=== PATIENT | male | born 1995 | race American Indian/Alaskan Native ===

== ENCOUNTER 2021-08-23 22:26 | Emergency (ER) | payer SELFPAY ==
[2021-08-23 22:45] VITALS: BP 117/81
[2021-08-23] MEDS ORDERED: IBUPROFEN 800 MG TAB PO ONE (22:56)
[2021-08-23] MEDS ORDERED: oxyCODONE /ACETAMINOPHEN 5-325MG TAB PO ONE (22:56)
--- NOTE | 2021-08-23 22:56 | Emergency Department Report ---
ED ENT HPI - General Chief complaint: Dental/Oral Stated complaint: TOOTHACHE/HEADACHE Time Seen by Provider: 08/23/21 22:47 Source: patient Mode of arrival: Ambulatory Limitations: No Limitations - History of Present Illness Initial comments: Chief complaint: "I have a hole in my mouth. HPI: This is a 25-year-old male with no sniffing past medical history who presents with toothache for 2 months worse over the last day. Left upper jaw. No fever. No facial swelling. No difficulty with swallowing. No trauma. MD complaint: tooth pain -: Gradual (Gradual for 2 months worse over the last day) Location: tooth # (14) Severity: severe Severity scale (0 -10): 10 Consistency: constant Improves with: none Worsens with: eating - Related Data Previous Rx's Medication Instructions Recorded Last Taken Type Ibuprofen [Motrin 800 MG tab] 800 mg PO Q6H PRN #20 tablet 08/23/21 Unknown Rx Penicillin V Potassium 500 mg PO TID 7 Days #21 tablet 08/23/21 Unknown Rx oxyCODONE /ACETAMINOPHEN [Percocet 1 tab PO Q6HR PRN #15 tablet 08/23/21 Unknown Rx 5/325] Allergies Allergy/AdvReac Type Severity Reaction Status Date / Time No Known Allergies Allergy Unverified 08/23/21 22:43 ED Dental HPI - General Chief complaint: Dental/Oral Stated complaint: TOOTHACHE/HEADACHE Time Seen by Provider: 08/23/21 22:47 Source: patient Mode of arrival: Ambulatory Limitations: No Limitations - Related Data Previous Rx's Medication Instructions Recorded Last Taken Type Ibuprofen [Motrin 800 MG tab] 800 mg PO Q6H PRN #20 tablet 08/23/21 Unknown Rx Penicillin V Potassium 500 mg PO TID 7 Days #21 tablet 08/23/21 Unknown Rx oxyCODONE /ACETAMINOPHEN [Percocet 1 tab PO Q6HR PRN #15 tablet 08/23/21 Unknown Rx 5/325] Allergies Allergy/AdvReac Type Severity Reaction Status Date / Time No Known Allergies Allergy Unverified 08/23/21 22:43 ED Review of Systems ROS: Stated complaint: TOOTHACHE/HEADACHE Other details as noted in HPI Constitutional: denies: chills, fever, malaise Respiratory: denies: cough, shortness of breath Gastrointestinal: denies: abdominal pain, nausea, vomiting Neurological: denies: headache, weakness ED Past Medical Hx - Past Medical History Previous Medical History?: No - Surgical History Past Surgical History?: No - Medications Home Medications: Home Medications Medication Instructions Recorded Confirmed Last Taken Type Ibuprofen [Motrin 800 MG tab] 800 mg PO Q6H PRN #20 tablet 08/23/21 Unknown Rx Penicillin V Potassium 500 mg PO TID 7 Days #21 tablet 08/23/21 Unknown Rx oxyCODONE /ACETAMINOPHEN [Percocet 1 tab PO Q6HR PRN #15 tablet 08/23/21 Unknown Rx 5/325] ED Physical Exam - General Limitations: No Limitations General appearance: alert, in no apparent distress, other (Nontoxic but appears in pain) - Head Head exam: Present: atraumatic, normocephalic - Eye Eye exam: Absent: periorbital swelling, periorbital tenderness - ENT ENT exam: Present: other (Tooth #14 dental caries with enamel defect no associated swelling or purulence no facial edema) - Neck Neck exam: Present: normal inspection, full ROM, other (No neck or submandibular edema) - Respiratory Respiratory exam: Absent: respiratory distress - Neurological Exam Neurological exam: Present: alert, oriented X3 - Psychiatric Psychiatric exam: Present: normal affect, normal mood - Skin Skin exam: Present: warm, dry, intact, normal color ED Course Vital Signs 08/23/21 22:43 Temperature 98 F Pulse Rate 90 Respiratory 18 Rate Blood Pressure 117/81 [Right] O2 Sat by Pulse 99 Oximetry ED Medical Decision Making - Medical Decision Making Toothache dental caries: Given ibuprofen and Percocet emergency department. Prescribed ibuprofen Percocet and penicillin. Referred to dental clinics. Critical care attestation.: If time is entered above; I have spent that time in minutes in the direct care of this critically ill patient, excluding procedure time. ED Disposition Clinical Impression: Dental caries, Pain due to dental caries Disposition: HOME / SELF CARE / HOMELESS Is pt being admited?: No Does the pt Need Aspirin: No Condition: Stable Instructions: Preventive Dental Care, Adult Prescriptions: Ibuprofen [Motrin 800 MG tab] 800 mg PO Q6H PRN #20 tablet PRN Reason: Pain , Severe (7-10) Penicillin V Potassium 500 mg PO TID 7 Days #21 tablet oxyCODONE /ACETAMINOPHEN [Percocet 5/325] 1 tab PO Q6HR PRN #15 tablet PRN Reason: Pain Referrals: [facility] [Outside] - 3-5 Days [facility] [Outside] - 3-5 Days
== END 2021-08-23 23:29 | disposition home or self-care (01) ==
LOC: ED 22:26
DX: K02.9 Dental caries, unspecified (principal); Z79.899 Other long term (current) drug therapy
CPT/HCPCS: 99282

== ENCOUNTER 2021-09-11 03:16 | Emergency (ER) | payer SELFPAY ==
[2021-09-11] MEDS ORDERED: ACETAMINOPHEN 500 MG TAB ONE (03:19)
[2021-09-11 03:22] VITALS: BP 99/63
[2021-09-11] MEDS ORDERED: ACETAMINOPHEN 500 MG TAB PO ONE (03:23)
[2021-09-11] MEDS ORDERED: IBUPROFEN 600 MG TAB PO ONE (03:51)
--- NOTE | 2021-09-11 05:28 | Emergency Department Report ---
ED General Adult HPI - General Chief complaint: Dental/Oral Stated complaint: TOOTHACHE Source: patient Mode of arrival: Ambulatory Limitations: No Limitations - History of Present Illness Initial comments: Patient is a 25-year-old -[place] male with history of recurrent dental caries who presented to the ED with complaint of acute onset persistent severe left maxillary premolar molar toothache with swollen gums for the last 1 week, worse in the last 2 days. Patient states that he has not been able to sleep in the last 8 hours because of worsening pain despite taking [id number] pain medications. Patient denies dizziness, syncope, fever, chills, nausea, vomiting, sore throat, headache, chest pain or shortness of breath. MD Complaint: Dental pain; swollen gums -: Sudden, week(s) (1) Location: mouth Radiation: non-radiation Severity scale (0 -10): 10 Quality: aching, sharp Consistency: constant Improves with: none Worsens with: none Associated Symptoms: denies other symptoms, loss of appetite. denies: cough, diaphoresis, fever/chills, headaches, malaise, nausea/vomiting, rash, seizure, shortness of breath, syncope Treatments Prior to Arrival: NSAID - Related Data Previous Rx's Medication Instructions Recorded Last Taken Type Ibuprofen [Motrin 800 MG tab] 800 mg PO Q6H PRN #20 tablet 08/23/21 Unknown Rx Penicillin V Potassium 500 mg PO TID 7 Days #21 tablet 08/23/21 Unknown Rx oxyCODONE /ACETAMINOPHEN [Percocet 1 tab PO Q6HR PRN #15 tablet 08/23/21 Unknown Rx 5/325] Clindamycin [Clindamycin CAP] 300 mg PO Q8HR #60 capsule 09/11/21 Unknown Rx Ketorolac [Toradol] 10 mg PO Q8H PRN #20 tablet 09/11/21 Unknown Rx traMADoL [Ultram] 50 mg PO Q6HR PRN #12 tablet 09/11/21 Unknown Rx Allergies Allergy/AdvReac Type Severity Reaction Status Date / Time No Known Allergies Allergy Unverified 08/23/21 22:43 ED Review of Systems ROS: Stated complaint: TOOTHACHE Other details as noted in HPI Constitutional: denies: chills, fever Eyes: denies: eye pain, eye discharge, vision change ENT: dental pain (Left maxillary premolar molar toothache). denies: ear pain, throat pain Respiratory: denies: cough, shortness of breath, wheezing Cardiovascular: denies: chest pain, palpitations Endocrine: no symptoms reported Gastrointestinal: denies: abdominal pain, nausea, vomiting, diarrhea Genitourinary: denies: urgency, dysuria Musculoskeletal: denies: back pain, joint swelling, arthralgia Skin: denies: rash, lesions Neurological: denies: headache, weakness, paresthesias Psychiatric: denies: anxiety, depression Hematological/Lymphatic: denies: easy bleeding, easy bruising ED Past Medical Hx - Past Medical History Previous Medical History?: No - Surgical History Past Surgical History?: No - Medications Home Medications: Home Medications Medication Instructions Recorded Confirmed Last Taken Type Ibuprofen [Motrin 800 MG tab] 800 mg PO Q6H PRN #20 tablet 08/23/21 Unknown Rx Penicillin V Potassium 500 mg PO TID 7 Days #21 tablet 08/23/21 Unknown Rx oxyCODONE /ACETAMINOPHEN [Percocet 1 tab PO Q6HR PRN #15 tablet 08/23/21 Unknown Rx 5/325] Clindamycin [Clindamycin CAP] 300 mg PO Q8HR #60 capsule 09/11/21 Unknown Rx Ketorolac [Toradol] 10 mg PO Q8H PRN #20 tablet 09/11/21 Unknown Rx traMADoL [Ultram] 50 mg PO Q6HR PRN #12 tablet 09/11/21 Unknown Rx ED Physical Exam - General Limitations: No Limitations General appearance: alert, in no apparent distress - Head Head exam: Present: atraumatic, normocephalic, normal inspection - Eye Eye exam: Present: normal appearance, PERRL, EOMI Pupils: Present: normal accommodation - ENT ENT exam: Present: mucous membranes moist, TM's normal bilaterally, normal external ear exam, other (Swollen painful left maxillary gingiva; severely tender left maxillary premolar and molar teeth) - Neck Neck exam: Present: normal inspection, full ROM - Respiratory Respiratory exam: Present: normal lung sounds bilaterally. Absent: respiratory distress, wheezes, rales, rhonchi, chest wall tenderness, decreased breath sounds, prolonged expiratory - Cardiovascular Cardiovascular Exam: Present: regular rate, normal rhythm, normal heart sounds. Absent: systolic murmur, diastolic murmur, rubs, gallop - GI/Abdominal GI/Abdominal exam: Present: soft, normal bowel sounds. Absent: tenderness, guarding, rebound, hyperactive bowel sounds, hypoactive bowel sounds - Extremities Exam Extremities exam: Present: normal inspection, full ROM, normal capillary refill - Back Exam Back exam: Present: normal inspection, full ROM. Absent: tenderness, CVA tenderness (R), CVA tenderness (L), muscle spasm, paraspinal tenderness - Neurological Exam Neurological exam: Present: alert, oriented X3, CN II-XII intact, normal gait, reflexes normal - Psychiatric Psychiatric exam: Present: normal affect, normal mood - Skin Skin exam: Present: warm, dry, intact, normal color. Absent: rash ED Course Vital Signs 09/11/21 09/11/21 03:20 05:03 Temperature 98.0 F Respiratory 18 20 Rate Blood Pressure 99/63 ED Medical Decision Making - Medical Decision Making This is a 25-year-old -[place] male with history of recurrent dental caries who presented to the ED with complaint of acute onset persistent severe left maxillary premolar molar toothache with swollen gums for the last 1 week, worse in the last 2 days. Patient states that he has not been able to sleep in the last 8 hours because of worsening pain despite taking [id number] pain medications. In the ED, patient is alert and oriented x3 and is not in any distress. Patient was treated in the ED for pain and on reevaluation, patient's pain is well controlled medication. Patient will discharge home on pain medication and antibiotics and advised to follow-up with his dentist in 7 to 10 days for reevaluation. Patient was advised return to the ED immediately if symptoms get worse. - Differential Diagnosis Dental abscess; dental caries; gingivitis; Critical care attestation.: If time is entered above; I have spent that time in minutes in the direct care of this critically ill patient, excluding procedure time. ED Disposition Clinical Impression: Dental abscess, Dental caries, Acute gingivitis Disposition: 01 HOME / SELF CARE / HOMELESS Is pt being admited?: No Does the pt Need Aspirin: No Condition: Stable Instructions: Dental Abscess, Honm-[id number], Trench Mouth Additional Instructions: Take medication with food, drink plenty of fluids and follow-up with your dentist in 7 to 10 days for reevaluation. Return to the ED immediately if symptoms get worse. Prescriptions: Clindamycin [Clindamycin CAP] 300 mg PO Q8HR #60 capsule Ketorolac [Toradol] 10 mg PO Q8H PRN #20 tablet PRN Reason: Pain traMADoL [Ultram] 50 mg PO Q6HR PRN #12 tablet PRN Reason: Pain Referrals: [facility] [Outside] - 7-10 days Time of Disposition: 05:27 Print Language: DIVEHI
== END 2021-09-11 06:12 | disposition home or self-care (01) ==
LOC: ED 03:16
DX: K04.7 Periapical abscess without sinus (principal); K02.9 Dental caries, unspecified; K05.00 Acute gingivitis, plaque induced; Z79.899 Other long term (current) drug therapy
CPT/HCPCS: 99282